=== PATIENT | male | born 1960 | race Caucasian/White ===

== ENCOUNTER → 2025-01-01 11:49 | Outpatient (CLI) | payer BC, SELFPAY | PROVIDERS: PCP Family Medicine; Visit Provider Urology | DX: N40.1 Benign prostatic hyperplasia with lower urinary tract symptoms (principal) | CPT/HCPCS: 87077; 87086 ==

== ENCOUNTER 2025-06-05 16:10 | Emergency (ER) | payer BC, SELFPAY ==
[2025-06-05 16:20] VITALS: BP 162/89; PULSE 102; RESP 14; TEMP 36.1; O2SAT 96; BMI 35.5
--- NOTE | 2025-06-05 16:36 | DI.US.S_ITS ---
PROCEDURE: US SCROTUM INDICATIONS: Testicular pain TECHNIQUE: Real-time scanning was performed of the scrotum and testicles, with image documentation. Color and pulse Doppler interrogation was performed of both testicles. COMPARISON: None. FINDINGS: Right: Testicle is normal in size at 5.4 x 2.1 x 3.8 cm, and heterogeneous in echotexture. Epididymis is heterogeneous and hyperemic. There is a complex fluid collection /complex cystic lesion noted in the right hemiscrotum measuring 1.8 x 0.9 x 1.3 cm. No associated vascularity. No hydrocele or varicoceles. Overlying scrotal skin is normal in thickness. Left: Status post left orchiectomy with prosthetic testicle. Doppler: Color and pulse Doppler demonstrate normal and symmetric arterial flow in the right testicle. IMPRESSION: Findings suggestive of right epididymitis with possible associated 1.8 cm complicated cyst/early abscess or spermatocele. Recommend continued clinical and imaging surveillance after resolution of acute symptoms. Dictated by: Ross Thorne M.D. on 06/05/2025 at 18:38 Approved by: Ross Thorne M.D. on 06/05/2025 at 18:42
--- NOTE | 2025-06-05 16:58 | ED.MALEGU ---
HPI - Male Genitourinary <Chi Murrieta PA-C - Last Filed: 06/05/25 18:57> General Chief complaint: Urogenital-Male Stated complaint: urogenital male, rt testicale swollen Time Seen by Provider: 06/05/25 16:36 Source: patient Mode of arrival: Ambulatory History of Present Illness HPI Narrative: This is a 65-year-old male presents emergency department due to right testicular pain. Patient states that he woke up 2 nights ago which she was wrapped in his right testicle and has been reporting some dull aching pain to the right side since then. He reports pain this is a /10. 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 Denies any penile discharge, dysuria, nausea, vomiting, abdominal pain, or any other concerning signs or symptoms. Related Data Previous Rx's ?Medication ?Instructions ?Recorded sildenafil 50 mg tablet 50 mg PO DAILY PRN sexual activity 08/08/24 #10 tabs levofloxacin 500 mg tablet 500 mg PO DAILY #7 tabs 01/03/25 levofloxacin 500 mg tablet 500 mg PO DAILY 10 days #10 tabs 06/05/25 Allergies Allergy/AdvReac Type Severity Reaction Status Date / Time No Known Drug Allergies Allergy Unverified 06/05/25 16:22 Review of Systems <Chi Murrieta PA-C - Last Filed: 06/05/25 18:57> Review of Systems Narrative: GENERAL: Denies chills, fatigue, malaise, fever, sweats. HEENT: Denies sinus pain, ear pain, sore throat, difficulty swallowing, dizziness. RESPIRATORY: Denies dyspnea, cough, wheezing, hemoptysis, sputum. CARDIOVASCULAR: Denies chest pain, palpitations, orthopnea, edema, GASTROINTESTINAL: Denies nausea, vomiting, abdominal pain, diarrhea, constipation, melena. : right testicular pain MUSCULOSKELETAL: denies weakness, joint pain, or bony pain SKIN: Denies rash, skin lesions, or other NEUROLOGIC: Denies weakness, headache, numbness, change in speech, confusion, seizures, incoordination. PSYCHIATRIC: No concerning psychosocial issues. 12 point review of systems is negative except for those stated above Patient History <BRUCE Cuevas Last Filed: 06/05/25 18:57> Medical History Shoulder symptoms with history of shoulder arthroplasty Hx of diabetes mellitus Surgical History History of surgery on wrist Social History marital status: unmarried,single Smoking Status: Unknown if ever smoked alcohol intake: current caffeine: Yes Type(s) of exercise: none Smoking Status: Unknown if ever smoked Exam <Chi Murrieta PA-C - Last Filed: 06/05/25 18:57> Narrative Exam Narrative: GENERAL: Well-developed patient, in mild distress. HEAD: Atraumatic. Normocephalic. EYES: Pupils equal round and reactive. Extraocular motions intact. No scleral icterus. No injection or drainage. ENT: Nose without bleeding, purulent drainage. Throat without erythema, tonsillar hypertrophy or exudate. Airway patent. NECK: Trachea midline. Non tender EXTREMITIES: No edema or joint tenderness. NEURO: AOx3. SKIN: No rash or erythema of visible areas : Performed with physical education aide in room. No evidence of significant testicular elevation. Some pain with palpation of the right testicle. Initial Vital Signs Initial Vital Signs: Vital Signs Temperature 97.0 F L 06/05/25 16:20 Pulse Rate 102 H 06/05/25 16:20 Respiratory Rate 14 06/05/25 16:20 Blood Pressure 162/89 H 06/05/25 16:20 Pulse Oximetry 96 06/05/25 16:20 Oxygen Delivery Method Room Air 06/05/25 16:20 <Zach Latham MD - Last Filed: 06/06/25 01:44> Initial Vital Signs Initial Vital Signs: Vital Signs Temperature 97.0 F L 06/05/25 16:20 Pulse Rate 102 H 06/05/25 16:20 Respiratory Rate 14 06/05/25 16:20 Blood Pressure 162/89 H 06/05/25 16:20 Pulse Oximetry 96 06/05/25 16:20 Oxygen Delivery Method Room Air 06/05/25 16:20 Course <Chi Murrieta PA-C - Last Filed: 06/05/25 18:57> Orders Ordered: Discontinued Medications Ceftriaxone Sodium (Ceftriaxone 2,000 Mg Vial) 1,000 mg IM NOW ONE Stop: 06/05/25 18:53 Last Admin: 06/05/25 19:05 Dose: 1,000 mg Documented By: BERTRAM Vital Signs Vital signs: Vital Signs - 8 hr 06/05/25 19:09 Pulse Rate 97 H Respiratory Rate 15 Blood Pressure 159/88 H Pulse Oximetry 97 Oxygen Delivery Method Room Air <Zach Latham MD - Last Filed: 06/06/25 01:44> Orders Ordered: Discontinued Medications Ceftriaxone Sodium (Ceftriaxone 2,000 Mg Vial) 1,000 mg IM NOW ONE Stop: 06/05/25 18:53 Last Admin: 06/05/25 19:05 Dose: 1,000 mg Documented By: BERTRAM Vital Signs Vital signs: Vital Signs - 8 hr 06/05/25 19:09 Pulse Rate 97 H Respiratory Rate 15 Blood Pressure 159/88 H Pulse Oximetry 97 Oxygen Delivery Method Room Air MDM - Male Genitourinary <Chi Murrieta PA-C - Last Filed: 06/05/25 18:57> Imaging Data Scrotal US : Radiologist's Impression: [place] [address] Ultrasound Report Signed Patient: Chucky Archuleta MR#: [id number] : 1960 Acct:[id number] Age/Sex: 65 / M Date of Service: 06/05/25 Loc: ED Accession Number: [id number] Procedure: US scrotum Ordering Provider: Chi Murrieta PA-C PROCEDURE: US SCROTUM INDICATIONS: Testicular pain TECHNIQUE: Real-time scanning was performed of the scrotum and testicles, with image documentation. Color and pulse Doppler interrogation was performed of both testicles. COMPARISON: None. FINDINGS: Right: Testicle is normal in size at 5.4 x 2.1 x 3.8 cm, and heterogeneous in echotexture. Epididymis is heterogeneous and hyperemic. There is a complex fluid collection /complex cystic lesion noted in the right hemiscrotum measuring 1.8 x 0.9 x 1.3 cm. No associated vascularity. No hydrocele or varicoceles. Overlying scrotal skin is normal in thickness. Left: Status post left orchiectomy with prosthetic testicle. Doppler: Color and pulse Doppler demonstrate normal and symmetric arterial flow in the right testicle. IMPRESSION: Findings suggestive of right epididymitis with possible associated 1.8 cm complicated cyst/early abscess or spermatocele. Recommend continued clinical and imaging surveillance after resolution of acute symptoms. Dictated by: Ross Thorne M.D. on 06/05/2025 at 18:38 Approved by: Ross Thorne M.D. on 06/05/2025 at 18:42 MDM Narrative Medical decision making narrative: ED course: This is a 65-year-old male presents emergency department due to 2 days of right-sided testicular pain. He states the pain began after he found he was right testicle wrapped in a sheet. Ultrasound was ordered which showed right-sided epididymitis as well as possible complex cyst versus abscess versus spermatocele. Patient was has not established urologist he will call tomorrow to establish follow up. We will empirically treat with 1 g of IM Rocephin as well as oral ciprofloxacin as patient does not report being sexually active. CC: Right testicular pain Complicating co-morbidities: History of diabetes mellitus Data collected from: Previous notes Medical records reviewed: Has a established urologist. Last seen by them 5 months ago due to abnormal urinary habits and rectal dysfunction. History of obstructive sleep apnea. History of diabetes mellitus. History of BPH. Zone sildenafil for erectile dysfunction. Differential considered, but not limited to: Spermatocele, epididymitis, testicular torsion Exam documented above, pertinent findings include: Right-sided testicular tenderness to palpation Lab Test results independently reviewed as above. Pertinent findings: None obtained Imaging studies independently reviewed: As above Scores Used: None MIPS Elements: None Consultations: None Treatments: IM Rocephin Re-evaluations: None Discussion: Discussed plan with the patient was comfortable with the plan Diagnosis: Epididymitis Disposition: see below, along with detailed discharge instructions that have been reviewed with patient as well as indications for ED re-evaluation and additional outpatient follow up Discharge Plan Departure Patient Disposition: Home Clinical Impression: Epididymitis Activity Restrictions/Additional Instructions: Thank you for coming to the [facility] Emergency Department today. Please call your established urologist tomorrow to establish close follow up. Please take oral antibiotics as prescribed to help with the symptoms. I sent the medication to [facility] in [place]. This is a increased risk of tendon injury while on this medication so please do not perform any physical activity other than light walking. Please return to the emergency department if you develop any significant new or worsening pain, fevers, or any other concerning signs or symptoms. I hope you feel better soon. Please follow up with your primary care provider within a week if your symptoms continue. If you do not have a primary care provider please contact the [facility] Resource line at [phone]. They will ask some questions about your medical history and help you get set up with a provider in the community. Prescriptions: New levofloxacin 500 mg tablet 500 mg PO DAILY 10 Days Qty: 10 0RF No Action levofloxacin 500 mg tablet 500 mg PO DAILY Qty: 7 0RF sildenafil 50 mg tablet 50 mg PO DAILY PRN (Reason: sexual activity) Qty: 10 0RF Rx Instructions: administer 30 minutes to 4 hours before activity Referrals: Nba Allen, DO [Primary Care Provider, Urology] Stand Alone Forms: Patient Portal/API ED Sign-out <Zach Latham MD - Last Filed: 06/06/25 01:44> Cosign ED Attending Cosignature Attestation: I was immediately available in the department for consultation. This documentation has been reviewed and I agree with assessment and plan. Supervised by Zach Latham MD
[2025-06-05 19:09] VITALS: BP 159/88; PULSE 97; RESP 15; O2SAT 97
== END 2025-06-05 19:08 | disposition home or self-care (01) ==
PROVIDERS: Emergency Provider Physician Assistant Medical; PCP Urology
DX: N45.1 Epididymitis (principal)
CPT/HCPCS: 76870; 96372; 99283; J0696